=== PATIENT | female | born 1955 | race Caucasian/White ===

== ENCOUNTER → 2017-04-05 | Outpatient (CLI) | payer BC ==
[~2017-04-05] MED LIST: CALCIUM 600600 M2 PO; FISH OIL500 MG PO; FUROCOT20 MG PO; K-DUR 10 MEQ T10 MEQ PO; NIACOR500 MG PO; NOLVADEX20 MG PO; VISION FORMULA1 TAB PO; VITAMIN D31000 IU PO; WOMEN'S ONE DAI1 TAB PO; ZOCOR 10MG10 MG PO
== END ==
LOC: MC.RAD 09:51
DX: Z12.31 Encounter for screening mammogram for malignant neoplasm of breast (principal)

== ENCOUNTER → 2018-04-11 | Outpatient (CLI) | payer BC | LOC: MC.RAD 08:56 | DX: Z12.31 Encounter for screening mammogram for malignant neoplasm of breast (principal); Z85.3 Personal history of malignant neoplasm of breast ==

== ENCOUNTER → 2019-04-17 | Outpatient (CLI) | payer BC | LOC: MC.RAD 09:36 | DX: Z12.31 Encounter for screening mammogram for malignant neoplasm of breast (principal) ==

== ENCOUNTER → 2020-04-22 | Outpatient (CLI) | payer BC | LOC: MC.RAD 11:07 | DX: Z12.31 Encounter for screening mammogram for malignant neoplasm of breast (principal) ==

== ENCOUNTER → 2021-04-17 | Outpatient (CLI) | payer BC | LOC: MC.RAD 12:33 | DX: Z12.31 Encounter for screening mammogram for malignant neoplasm of breast (principal) ==